=== PATIENT | male | born 1955 | race Caucasian/White ===

== ENCOUNTER 2020-11-23 14:32 | Emergency (ER) | payer MEDICARE ==
[~2020-11-23] VITALS: Ht 177.8 cm; Wt 106.9 kg
[2020-11-23 15:04] VITALS: BP 135/88
[2020-11-23] MEDS ORDERED: IV NORMAL SALINE 1000ML BAG 1,000 ML IV SCH (15:45)
[2020-11-23] MEDS ORDERED: ONDANSETRON PF 4 MG/2 ML VIAL. IVP ONE (15:45)
[2020-11-23 15:52] LABS: BASO % 0 % (0-3); EOS # 1.1 x10^3/uL (0.0-0.7); EOS % 9 % (0-3); HEMATOCRIT 50.4 % (39.0-53.0); HEMOGLOBIN 16.9 g/dL (13.0-17.5); LYMPH # 2.8 x10^3/uL (1.0-4.8); LYMPH % 23 % (24-48); MEAN CORPUSCULAR HEMOGLOBIN 29 pg (25-35); MEAN CORPUSCULAR HGB CONC 34 g/dL (31-37); MEAN CORPUSCULAR VOLUME 88 fL (79-100); MONO # 0.9 x10^3/uL (0.0-1.1); MONO % 8 % (0-9); NEUT # 7.2 x10^3/uL (1.8-7.7); NEUT % 60 % (31-73); PLATELET COUNT 293 x10^3/uL (140-400); RED BLOOD COUNT 5.74 x10^6/uL (4.30-5.70); RED CELL DISTRIBUTION WIDTH 14.7 % (11.5-14.5)
[2020-11-23 16:09] LABS: PROTHROMBIN TIME PATIENT 13.4 SEC (11.7-14.0)
[2020-11-23 16:12] LABS: CALCIUM 7.9 mg/dL (8.5-10.1); GFR 74.8; POTASSIUM 3.2 mmol/L (3.5-5.1)
[2020-11-23 16:26] LABS: ALBUMIN/GLOBULIN RATIO 0.8 (1.0-1.7); TOTAL BILIRUBIN 0.3 mg/dL (0.2-1.0); TOTAL PROTEIN 4.5 g/dL (6.4-8.2)
--- NOTE | 2020-11-23 16:30 | RAD ---
EXAM: Chest, single view. HISTORY: Vomiting. COMPARISON: None. FINDINGS: A frontal view of the chest is obtained. There is no infiltrate, pleural effusion or pneumo thorax. The heart is normal in size. IMPRESSION: No acute pulmonary finding. Electronically signed by: Yasmeen Hopson MD (11/23/2020 4:19 PM) [id number]
[2020-11-23] MEDS ORDERED: IOHEXOL 300 MG/ML 100ML VIAL. IV ONE (16:45)
--- NOTE | 2020-11-23 17:10 | PHYS DOC ---
Past Medical History Past Medical History: GERD, High Cholesterol Past Surgical History: Other Additional Past Surgical Histo: RT SHOULDER Smoking Status: Never Smoker Alcohol Use: Occasionally General Adult EDM: Chief Complaint: NAUSEA/VOMITING/DIARRHA HPI: HPI: Patient is a 65 year old male who presents with last 10 days has had diarrhea, abdominal cramps and vomiting. He states he has been to [facility] twice and they have done CTs and has been negative and he has had all these inconclusive results. He states that his is bringing rate everywhere in the kitchen and is getting on the plates and around the food. He states he has been eating all the same plates. Patient states he is wondering if he is ingesting raid. Patient was tested for Covid a month ago and it was negative. He has a history of GERD and high cholesterol. He rates his abdominal cramping a 3 out of 10. Review of Systems: Review of Systems: Constitutional: Denies fever or chills. [] Eyes: Denies change in visual acuity. [] HENT: Denies nasal congestion or sore throat. [] Respiratory: Denies cough or shortness of breath. [] Cardiovascular: Denies chest pain or edema. [] GI: + abdominal pain, +nausea, +vomiting, denies bloody stools or +diarrhea. [] : Denies dysuria. [] Musculoskeletal: Denies back pain or joint pain. [] Integument: Denies rash. [] Neurologic: Denies headache, focal weakness or sensory changes. [] Endocrine: Denies polyuria or polydipsia. [] Lymphatic: Denies swollen glands. [] Psychiatric: Denies depression or anxiety. [] Heart Score: Risk Factors: Risk Factors: DM, Current or recent (<one month) smoker, HTN, HLP, family history of CAD, obesity. Risk Scores: Score 0 - 3: 2.5% MACE over next 6 weeks - Discharge Home Score 4 - 6: 20.3% MACE over next 6 weeks - Admit for Clinical Observation Score 7 - 10: 72.7% MACE over next 6 weeks - Early Invasive Strategies Current Medications: Current Medications Medications (Trade) Dose Ordered Sig/Courtney Start Time Stop Time Status Last Admin Dose Admin Iohexol (Omnipaque 300 Mg/ml) 75 ml 1X ONCE 11/23/20 16:45 11/23/20 16:46 DC 11/23/20 16:46 75 ML Ondansetron HCl (Zofran) 4 mg 1X ONCE 11/23/20 15:45 11/23/20 16:39 DC 11/23/20 16:53 4 MG Sodium Chloride 1,000 ml @ 1,000 mls/hr Q1H 11/23/20 15:45 11/23/20 16:44 DC 11/23/20 16:53 1,000 MLS/HR Allergies: Allergies: Allergies Coded Allergies Type Severity Reaction Last Updated Verified amoxicillin Allergy Intermediate 11/23/20 Yes caffeine Adverse Reaction Intermediate 11/23/20 Yes Physical Exam: PE: Constitutional: Well developed, well nourished, no acute distress, non-toxic appearance. [] HENT: Normocephalic, atraumatic, bilateral external ears normal, oropharynx mo ist, no oral exudates, nose normal. [] Eyes: PERRLA, EOMI, conjunctiva normal, no discharge. [] Neck: Normal range of motion, no tenderness, supple, no stridor. [] Cardiovascular:Heart rate regular rhythm, no murmur [] Lungs & Thorax: Bilateral breath sounds clear to auscultation [] Abdomen: Bowel sounds normal, soft, generalized tenderness, no masses, no pulsatile masses. [] Skin: Warm, dry, no erythema, no rash. [] Back: No tenderness, no CVA tenderness. [] Extremities: No tenderness, no cyanosis, no clubbing, ROM intact, no edema. [] Neurologic: Alert and oriented X 3, normal motor function, normal sensory function, no focal deficits noted. [] Psychologic: Affect normal, judgement normal, mood normal. [] Current Patient Data: Labs: Laboratory Tests Test 11/23/20 15:28 White Blood Count 12.0 x10^3/uL (4.0-11.0) H Red Blood Count 5.74 x10^6/uL (4.30-5.70) H Hemoglobin 16.9 g/dL (13.0-17.5) Hematocrit 50.4 % (39.0-53.0) Mean Corpuscular Volume 88 fL (79-100) Mean Corpuscular Hemoglobin 29 pg (25-35) Mean Corpuscular Hemoglobin Concent 34 g/dL (31-37) Red Cell Distribution Width 14.7 % (11.5-14.5) H Platelet Count 293 x10^3/uL (140-400) Neutrophils (%) (Auto) 60 % (31-73) Lymphocytes (%) (Auto) 23 % (24-48) L Monocytes (%) (Auto) 8 % (0-9) Eosinophils (%) (Auto) 9 % (0-3) H Basophils (%) (Auto) 0 % (0-3) Neutrophils # (Auto) 7.2 x10^3/uL (1.8-7.7) Lymphocytes # (Auto) 2.8 x10^3/uL (1.0-4.8) Monocytes # (Auto) 0.9 x10^3/uL (0.0-1.1) Eosinophils # (Auto) 1.1 x10^3/uL (0.0-0.7) H Basophils # (Auto) 0.0 x10^3/uL (0.0-0.2) Platelet Estimate Pending Prothrombin Time 13.4 SEC (11.7-14.0) Prothrombin Time INR 1.1 (0.8-1.1) Sodium Level 137 mmol/L (136-145) Potassium Level 3.2 mmol/L (3.5-5.1) L Chloride Level 106 mmol/L (98-107) Carbon Dioxide Level 21 mmol/L (21-32) Anion Gap 10 (6-14) Blood Urea Nitrogen 14 mg/dL (8-26) Creatinine 1.0 mg/dL (0.7-1.3) Estimated GFR (Cockcroft-Gault) 74.8 BUN/Creatinine Ratio 14 (6-20) Glucose Level 117 mg/dL (70-99) H Calcium Level 7.9 mg/dL (8.5-10.1) L Total Bilirubin 0.3 mg/dL (0.2-1.0) Aspartate Amino Transferase (AST) 28 U/L (15-37) Alanine Aminotransferase (ALT) 37 U/L (16-63) Alkaline Phosphatase 66 U/L (46-116) Troponin I Quantitative < 0.017 ng/mL (0.000-0.055) Total Protein 4.5 g/dL (6.4-8.2) L Albumin 2.0 g/dL (3.4-5.0) L Albumin/Globulin Ratio 0.8 (1.0-1.7) L Lipase 87 U/L (73-393) Laboratory Tests 11/23/20 15:28 Laboratory Tests 11/23/20 15:28 Vital Signs: Vital Signs Date Time Temp Pulse Resp B/P (MAP) Pulse Ox O2 Delivery O2 Flow Rate FiO2 11/23/20 15:04 97.3 100 135/88 (104) 99 97.3 11/23/20 14:54 22 Room Air EKG: EK AND READ BY DR HOWARD SINUS RHYTHM AND NO STEMI[] Radiology/Procedures: Radiology/Procedures: [] Impression: [place] [id number] IMAGING REPORT Signed PATIENT: SKYLAR SIMS ACCOUNT: [id number] : 1955 LOCATION: ER AGE: 65 SEX: M EXAM STATUS: REG ER ORD. PHYSICIAN: OLY DE LUNA APRN REASON: VOMITING PROCEDURE: PORTABLE CHEST 1V EXAM: Chest, single view. HISTORY: Vomiting. COMPARISON: None. FINDINGS: A frontal view of the chest is obtained. There is no infiltrate, pleural effusion or pneumothorax. The heart is normal in size. IMPRESSION: No acute pulmonary finding. Electronically signed by: Yasmeen Freeman MD (11/23/2020 4:19 PM) [id number] DICTATED and SIGNED BY: YASMEEN FREEMAN MD DATE: 11/23/20 [id number] [place] [id number] [place], [place] [id number] IMAGING REPORT Signed PATIENT: SKYLAR SIMS ACCOUNT: [id number] : 1955 LOCATION: ER AGE: 65 SEX: M EXAM STATUS: REG ER ORD. PHYSICIAN: OLY DE LUNA APRN REASON: ABD PAIN, VOMITING, DIARRHEA PROCEDURE: CT ABD PELV W/ IV CONTRST ONLY Study: CT abdomen/pelvis with intravenous contrast Indication: Abdominal pain. Vomiting. Diarrhea. Comparison: None. Technique: Helical CT imaging performed of the abdomen and pelvis after the intravenous administration of 75 cc Omnipaque 300 contrast. Sagittal and coronal reformats were obtained. One or more of the following individualized dose reduction techniques were utilized for this examination: 1. Automated exposure control 2. Adjustment of the mA and/or kV according to patient size 3. Use of iterative reconstruction technique. Findings: Punctate right middle lobe nodule not meeting size criteria for dedicated follow-up. No acute abnormality involving the visualized mediastinal contents. No focal hepatic parenchymal abnormality. Distended gallbladder but without evidence for acute cholecystitis. Nondilated biliary tree. No peripancreatic in flammation. Normal size of the spleen. No adrenal gland mass. Unremarkable kidneys and collecting system. Prominence of the prostate gland measuring 4.9 cm transverse. Incompletely formed stool throughout the colon typical of a diarrheal state. The proximal aspect of the appendix is dilated, image 32 series 4, but there is gas within the lumen distally and no surrounding inflammation to suggest a ppendicitis. Fluid distention of small bowel. Several segments exhibit mildly increased mucosal enhancement. No pathologic dilatation or transitioning to collapse to suggest obstruction. Unremarkable stomach. Mild aortic and iliac atheromatous plaque. No aneurysm or dissection. Scattered mildly prominent but not pathologically enlarged mesenteric lymph nodes are likely reactive. No retroperitoneal, iliac chain or inguinal adenopathy. No free fluid or pneumoperitoneum. No acute abnormality of the body wall soft tissues. Scattered body wall edema. No acute or aggressive osseous process. Scattered degenerative and chronic findings with associated mostly mild osseous neural foraminal encroachment. No evidence for severe central canal stenosis. Impression: 1. Fluid distention of small bowel with some mucosal hyperenhancement at a few locations which could represent a mild enteritis. Associated diarrheal state with incompletely formed stool throughout the colon. No bowel obstruction, pn eumatosis or perforation. 2. Mildly distended gallbladder but without CT manifestations of acute ch olecystitis. Electronically signed by: CECILIA LOZA MD (11/23/2020 5:05 PM) [id number] DICTATED and SIGNED BY: CECILIA LOZA MD DATE: 11/23/20 [id number] 0 Course & Med Decision Making: Course & Med Decision Making Pertinent Labs and Imaging studies reviewed. (See chart for details) See HPI. Aisha RN called poison control and Poison control states that she does not feel like the grade sprain and his symptoms are related. Abdomen is soft but has generalized tenderness. Patient states he is keeping down food and fluids but if he does vomited after eating. Alert and oriented x4. Speaks in full complete sentences. Ambulatory with a steady gait. Skin pink warm and dry. Patient will be given 20 of potassium in the ED and Zofran. [] Dragon Disclaimer: Dragon Disclaimer: This electronic medical record was generated, in whole or in part, using a voice recognition dictation system. Departure Departure Impression: Primary Impression: Nausea & vomiting Qualified Codes: R11.2 - Nausea with vomiting, unspecified Additional Impression: Diarrhea Qualified Codes: R19.7 - Diarrhea, unspecified Disposition: 01 DC HOME SELF CARE/HOMELESS Condition: STABLE Referrals: JASVIR SELLERS (PCP) ASHANTI MONTERROSO MD Patient Instructions: Diarrhea, Nausea and Vomiting, [id number] Additional Instructions: Follow-up with your primary care soon as possible. I have also referred you to a gastrointestinal doctor. Continue eating light meals and drinking plenty of fluids to stay hydrated. Take medications as prescribed. Scripts Famotidine (PEPCID) 20 Mg Tablet 20 MG PO BID, #20 TAB Prov: OLY DE LUNA ALMOND ROASTER 11/23/20 Ondansetron (ONDANSETRON ODT) 4 Mg Tab.rapdis 1 TAB PO PRN Q6-8HRS, #16 TAB Prov: OLY DE LUNA ALMOND ROASTER 11/23/20 OLY DE LUNA ALMOND ROASTER Nov 23, 2020 17:10
--- NOTE | 2020-11-23 17:10 | RAD ---
Study: CT abdomen/pelvis with intravenous contrast Indication: Abdominal pain. Vomiting. Diarrhea. Comparison: None. Technique: Helical CT imaging performed of the abdomen and pelvis after the intravenous administratio n of 75 cc Omnipaque 300 contrast. Sagittal and coronal reformats were obtained. One or more of the following individualized dose reduction techniques were utilized for this examinat ion: 1. Automated exposure control 2. Adjustment of the mA and/or kV according to patient size 3. Use of iterative reconstruction technique. Findings: Punctate right middle lobe nodule not meeting size criteria for dedicated follow-up. No acute abnorma lity involving the visualized mediastinal contents. No focal hepatic parenchymal abnormality. Distended gallbladder but without evidence for acute cholec ystitis. Nondilated biliary tree. No peripancreatic inflammation. Normal size of the spleen. No adren al gland mass. Unremarkable kidneys and collecting system. Prominence of the prostate gland measuring 4.9 cm transverse. Incompletely formed stool throughout the colon typical of a diarrheal state. The proximal aspect of t he appendix is dilated, image 32 series 4, but there is gas within the lumen distally and no surround ing inflammation to suggest appendicitis. Fluid distention of small bowel. Several segments exhibit m ildly increased mucosal enhancement. No pathologic dilatation or transitioning to collapse to suggest obstruction. Unremarkable stomach. Mild aortic and iliac atheromatous plaque. No aneurysm or dissection. Scattered mildly prominent but not pathologically enlarged mesenteric lymph nodes are likely reactive. No retroperitoneal, iliac eli in or inguinal adenopathy. No free fluid or pneumoperitoneum. No acute abnormality of the body wall s oft tissues. Scattered body wall edema. No acute or aggressive osseous process. Scattered degenerative and chronic findings with associated m ostly mild osseous neural foraminal encroachment. No evidence for severe central canal stenosis. Impression: 1. Fluid distention of small bowel with some mucosal hyperenhancement at a few locations which could represent a mild enteritis. Associated diarrheal state with incompletely formed stool throughout the colon. No bowel obstruction, pneumatosis or perforation. 2. Mildly distended gallbladder but without CT manifestations of acute cholecystitis. Electronically signed by: CECILIA LOZA MD (11/23/2020 5:05 PM) [id number]
[2020-11-23 18:26] LABS: % BANDS 3 % (0-9); % BASOS 2 % (0-3); % EOS 9 % (0-5); % LYMPHS 18 % (24-48); % MONOS 5 % (0-10); % SEGS 63 % (35-66)
[2020-11-23] MEDS ORDERED: ONDA4TAB12 PO (18:26)
[2020-11-23] MEDS ORDERED: FAMO-63 PO (18:26)
[2020-11-23 18:27] LABS: PLT ESTIMATE ADEQUATE (ADEQUATE)
[2020-11-23 18:28] LABS: POLYCHROMASIA SLIGHT
[2020-11-23 19:42] LABS: INFLUENZA A PATIENT NEGATIVE (NEGATIVE); INFLUENZA B PATIENT NEGATIVE (NEGATIVE)
--- NOTE | 2020-11-25 11:45 | EKG ---
[facility] [address] [place] [address] Test Date: 2020-11-23 Test Time: 17:15:29 Pat Name: SKYLAR SIMS Department: Room: Gender: M [employer]: : 1955 Requested By: OLY DE LUNA Order Number: [id number] Reading MD: Measurements Intervals [place] Rate: 91 P: 42 UT: 162 QRS: -24 QRSD: 92 T: 77 QT: 376 QTc: 464 Interpretive Statements SINUS RHYTHM VENTRICULAR PREMATURE COMPLEX(ES) LEFTWARD AXIS T ABNORMALITY IN HIGH LATERAL LEADS ABNORMAL ECG RI6.02 No previous ECG available for comparison
--- NOTE | 2020-11-26 10:24 | NUR ---
IP: Informed pt of negative COVID test. Pt verbalized understanding.
== END 2020-11-23 18:55 | disposition home or self-care (01) ==
LOC: ER 14:32
DX: R11.2 Nausea with vomiting, unspecified (principal); R19.7 Diarrhea, unspecified; Z20.818 Contact with and (suspected) exposure to other bacterial communicable diseases; R10.9 Unspecified abdominal pain; K21.9 Gastro-esophageal reflux disease without esophagitis; E78.00 Pure hypercholesterolemia, unspecified; Z98.890 Other specified postprocedural states; Z88.1 Allergy status to other antibiotic agents; Z91.018 Allergy to other foods
CPT/HCPCS: 36415; 71045; 74177; 80053; 83690; 84484; 85007; 85025; 85610; 87804; 93005; 96361; 96374; 99285; C9803; J2405; J7030; Q9967; U0003